=== PATIENT | male | born 1955 | race African-American/Black ===

== ENCOUNTER 2016-11-06 15:20 | Inpatient (IN) | payer OTHER, BC ==
[2016-11-06 15:27] VITALS: BMI 43.0
[2016-11-06] MEDS ORDERED: NS 1/2 1000 ML IV 1,000 ML IV ONE (15:45)
[2016-11-06] MEDS ORDERED: ROCEPHIN 1 GM IV PREMIX * OUT OF STOCK 50 ML IV ONE (15:45)
[2016-11-06] MEDS ORDERED: TYLENOL 500 MG TAB EXTRA STRENGTH ONE (15:46)
--- NOTE | 2016-11-06 15:55 | DR.CP ---
HPI - Time Seen Time seen: 15:50 - PCP Primary Care Physician: MARCELO CHRISTY - Complaint Chief Complaint Doctor Comments: Patient complains of RUQ pain for a month with fever, cold, cough with thick yellowish mucous. States he went to Dr. Quintanilla in [place] and he gave him some nasal spray about two weeks ago but he did not get any better so he came to the emergency room today. States he has had a cough with SOB, fever with pain right upper abdomen and chest. He denies wheezing or any recent trauma. Chief Complaint:: PT C/O HAVING RIGHT SIDED UPPER CHEST PAIN FOR A MONTH OFF AND ON AND ITS CONTINUOUS PAIN TODAY". Self Treatment fo Chief Complaint: PT TOOK 2 ROLAIDS, TUMSPT HAS CCC, - Reviewed Nurses Notes Review: Yes - Source History Provided: Patient - Mode of Arrival Mode of Arrival: Ambulatory - Timing Onset of Chief Complaint: 10/06/16 Came on: Gradually Pain: Present Now - Duration Duration: Intermittent How lon Duration: Weeks - Location Location of Chest Pain: Right, Chest Chest Pain Radiation Location: None - Context Onset: At rest Cardiac Risk Factors: HTN PE Risk Factors: None History of: None Prehospital Care: None - Quality Quality: Sharp - Severity Severity: Moderate - Modifying Factors Worsens: Exertion, Coughing, Movement Impoves: Nothing - Associated Signs and Symptoms Associated Signs and Symptoms: Shortness of Breath PMH - PMH Past Medical History: Yes Past Medical History: Diabetes, Hypertension Past Surgical History: Yes Past Surgical History Comment: ANKLE.. - Family History History of Family Medical Conditions: No - Social History Does patient currently use any type of tobacco product: No Have you used tobacco products in the last 12 months: No Type of Tobacco Use: None Does any household member use tobacco: No Alcohol Use: None Do you use any recreational Drugs:: No Lives With: Family Lives Where: Home - infectious screening In the last 2 months have you had wt loss of >10#?: NO Have you had fever, night sweats or hemotysis?: No Have you traveled outside the country in the last 6 months?: No Isolation: Standard ROS - Review of Systems Constitutional: No Symptoms Reported, Fever Eyes: No Symptoms Reported. negative: See HPI, Eye Pain, Blurred Vision, Tearing, Discharge, Photophobia, Diplopia, Other ENTM: No Symptoms Reported Respiratoy: Productive Cough Cardiovascular: Chest Pain (right sided chest pain). negative: No Symptoms Reported, See HPI, Edema, Palpitations, Syncope, Cyanosis, Skin Mottling, Other Gastrointestinal/Abdominal: Abdominal Pain (RUQ pain and right CVA pain). negative: No Symptoms Reported, See HPI, Constipation, Diarrhea, Nausea, Vomiting, Food Intolerance, Other Genitourinary: No Symptoms Reported Neurological: No Symptoms Reported Musculoskeletal: No Symptoms Reported Integumentary: No Symptoms Reported Hematologic/Lymphatic: No Symptoms Reported. negative: See HPI, Anemia, Blood Clots, Easy Bleeding, Easy Bruising, Swollen Glands, Lymphadenopathy, Other Endocrine: No Symptoms Reported Psychiatric: No Symptoms Reported PE - Vitals Vitals: Temperature 103.0 F Pulse Rate 111 Respiratory Rate 20 Blood Pressure 155/57 O2 Sat by Pulse Oximetry 96 - General Limitations: No Limitations General Appearance: Alert, In Distress (moderate) - Head Head Exam: Normal Inspection, Atraumatic, Normocephalic - Eyes Eye exam: Normal Appearance, PERRL, EOMI. negative: Scleral Icterus, Conjunctival Injection, Nystagmus, Miosis, Mydrasis, Periorbital Swelling, Periorbital Tenderness, Other - ENT ENT Exam: Normal Exam, Normal Oropharynx, Normal External Ear Exam, Mucous Membranes Moist, TM's Normal Bilaterally - Chest Chest Inspection: Normal Inspection, Symmetric Chest Wall Rise, Tenderness ( right cVA tenderness) - Respiratory Respiratory Exam: Normal Lung Sounds Bilat Respiratory Exam: Bilateral Clear to Auscultation, Bilateral Decreased Breath Sounds, Right Decreased Breath Sounds - Cardiovascular Cardiovascular Exam: Regular Rate, Normal Rhythm, Normal Heart Sounds. negative : Bradycardia, Tachycardia, Irregular Rhythm, Systolic Murmur, Diastolic Murmur , Rubs, Gallop, Clicks, JVD, +S1, +S2, +S3, +S4, Other Pulse: Normal Edema: Normal - Abdominal Exam Abdominal Exam: Normal Inspection, Normal Bowel Sounds, Soft, Tenderness (RUQ tenderness), Dimnished Bowel Sounds Abdominal Tenderness: RUQ, Moderate - Extremities Extremities Exam: Normal Inspection, Full ROM, Normal Capillary Refill. negative: Tenderness, Edema, Joint Swelling, Calf Tenderness, Other - Back Back Exam: Normal Inspection, Full ROM, (R) CVA Tenderness - Neurologic Neurological Exam: Alert, Oriented X3, CN II-XII Intact, Normal Gait, Reflexes Normal - Psychiatric Psychiatric Exam: Normal Affect, Normal Mood - Skin Skin Exam: Warm, Dry, Intact, Normal Color. negative: Rash, Cyanosis, Diaphoresis, Erythema, Pallor, Mottled, Other Course - Reevaluation 1st: Improved - Consultation Called: 05:30 Call Returned: 05:30 (Dr. Carrera to admit) - Education/Counseling Education/Counseling: Patient Educated On: Treatment, Diagnosis, Prognosis, Needs for Follow Up ROR - Labs Reviewed Laboratory Results Reviewed?: Yes (all labs and x-ray results reviewed and discussed with patietnt) Result Diagrams: 11/06/16 15:40 11/06/16 15:40 - XRAY XRAY Interpreted by: Radiologist (CXR: patchy RLL infiltrate) XRAY Findings: CT abdomen and pelvis: Patchy right lower lobe pneumonia. Large right pleur - Diagnosis Discharge Problem: Pleural effusion, right, SIRS (systemic inflammatory response syndrome) Right lower lobe pneumonia Qualifiers: Pneumonia type: due to unspecified organism Qualified Code(s): J18.1 - Lobar pneumonia, unspecified organism Diabetes mellitus Qualifiers: Diabetes mellitus type: type 1 - Discharge Plan Disposition: ADMITTED INPATIENT Condition: Stable - Follow ups/Referrals - Instructions
[2016-11-06] MEDS: NS 1/2 1000 ML IV 1,000 ML IV SCH ×2 (16:02→21:45)
[2016-11-06 16:05] LABS: BASOPHILS % (AUTO) 0.1 % (0.2-1.0); EOSINOPHILS % (AUTO) 0.1 % (0.9-2.9); HEMATOCRIT 34.1 % (42.0-54.0); HEMOGLOBIN 11.1 g/dL (13.5-18.0); LYMPHOCYTES # (AUTO) 0.6 X10^3/uL (1.3-2.9); LYMPHOCYTES % (AUTO) 5.4 % (21.0-51.0); MEAN CORPUSCULAR HEMOGLOBIN 26.8 pg (27.0-34.0); MEAN CORPUSCULAR HGB CONC 32.4 g/dL (33.0-35.0); MEAN CORPUSCULAR VOLUME 82.8 fL (80.0-100.0); MEAN PLATELET VOLUME 7.4 fL (7.4-11.0); MONOCYTES # (AUTO) 0.5 x10^3/uL (0.3-0.8); MONOCYTES % (AUTO) 4.3 % (0.0-13.0); NEUTROPHILS # (AUTO) 9.7 x10^3/uL (2.2-4.8); NEUTROPHILS % (AUTO) 90.1 % (42.0-75.0); PLATELET COUNT 302 X10^3/uL (150.0-450.0); RED BLOOD COUNT 4.12 X10^6/uL (4.7-6.0); RED CELL DISTRIBUTION WIDTH 12.7 % (11.6-16.5); WHITE BLOOD COUNT 10.8 X10^3/uL (3.6-10.0)
[2016-11-06] MEDS ORDERED: TYLENOL 500 MG TAB EXTRA STRENGTH PO ONE (16:06)
[2016-11-06 16:17] LABS: ALANINE AMINOTRANSFERASE 13 Units/L (12-78); ALBUMIN 3.1 g/dL (3.4-5.0); ALKALINE PHOSPHATASE 58 Units/L (46-116); ASPARTATE AMINO TRANSFERASE 20 Units/L (15-37); BLOOD UREA NITROGEN 14 mg/dL (7-18); CARBON DIOXIDE 29.2 mmol/L (21-32); CHLORIDE 102 mmol/L (98-107); COR CA(FOR HYPOALB) 9.7 mg/dL (8.5-10.1); COR NA(FOR HYPERGLY) 141 mmol/L (136-145); CREATININE 1.21 mg/dL (0.70-1.30); GLUCOSE 201 mg/dL (65-99); SODIUM 139 mmol/L (136-145); TOTAL PROTEIN 7.8 g/dL (6.4-8.2); eGFR BLACK RACES > 60 (>60); eGFR NON BLACK RACES > 60 (>60)
[2016-11-06 16:20] LABS: PLATELET MORPHOLOGY COMMENT NORMAL (NORMAL)
[2016-11-06] MEDS: ROCEPHIN VIAL 1 GM 1 GM in NS 50 ML IV + SPIKE MINIBAG* 50 ML IV SCH (16:32)
[2016-11-06 16:37] LABS: BILIRUBIN,URINE NEGATIVE (NEGATIVE); BLOOD/HEMOGLOBIN,URINE NEGATIVE (NEGATIVE); GLUCOSE, URINE 2+ (NEGATIVE); KETONES,URINE NEGATIVE (NEGATIVE); LEUKOCYTE ESTERASE ,URINE NEGATIVE (NEGATIVE); NITRITES,URINE NEGATIVE (NEGATIVE); PROTEIN,URINE NEGATIVE (NEGATIVE); UROBILINOGEN,URINE 2+ (NORMAL)
[2016-11-06 16:57] LABS: AMORPHOUS SEDIMENT,UR 2+ /HPF (NEGATIVE); APPEARANCE,URINE HAZY (CLEAR); BACTERIA,URINE TRACE /HPF (NEGATIVE); COLOR,URINE YELLOW (YELLOW); RBC,URINE 0-2 /HPF (NEGATIVE); SQUAMOUS EPITHELIAL CELL,UR RARE /HPF (NEGATIVE)
--- NOTE | 2016-11-06 17:24 | RAD ---
HISTORY: Right upper quadrant abdominal pain, chest pain Study: Two-view Chest Comparison: Findings: The trachea is midline . There is no widening or shift of mediastinum. The cardiac silhouette appear s within normal limits. blunting of the right costophrenic angle is noted consistent with small righ t pleural effusion. Patchy infiltrate is noted silhouetting the dome of the right diaphragm. The yuni gs are adequately aerated. Osseous structures are within normal limits for the patient's age IMPRESSION: 1. Heart normal size patchy infiltrate and or atelectasis at the right lung base with elevation of t he right diaphragm and small right pleural effusion. Reported By:
--- NOTE | 2016-11-06 17:39 | CT ---
Clinical history: Right upper quadrant pain, chest pain Exam: CT abdomen and pelvis without contrast Total exam DLP: 2252 Dose reduction technique: Modification of KV and MAA based on anatomic body part and patient's size. Iterative reconstruction techniques utilized. Findings: Lung bases : Moderate right pleural effusion is noted. The heart is normal in size and position. Liver and spleen: Limited evaluation of the solid organs is possible since no IV contrast is adminis tered. The liver and spleen appear homogeneous in density no perihepatic or perisplenic fluid collec tions are seen. Gallbladder and pancreas: The gallbladder is partially distended with no evidence of cholelithiasis. Pancreas appears within normal limits no pancreatic masses or peripancreatic fluid collections are seen. Adrenal glands, kidneys, retroperitoneum: No adrenal masses are identified . Malrotation of the righ t kidney is noted. No nephrolithiasis or hydronephrosis is seen.. The abdominal aorta tapers normal fashion with no evidence of abdominal aortic aneurysm. Bowel loops /abdominal wall: Moderate quantity stool noted the cecum and ascending colon. Small matthew l loops demonstrate normal caliber. The anterior abdominal wall appears intact. CT pelvis: GI: Large and small bowel loops demonstrate normal caliber. There are no free fluid collections in t he pelvis. : A partially urine filled bladder is noted mid pelvis. Prostate gland appears within normal limit s. Musculoskeletal: No superficial inguinal adenopathy is identified osseous structures are within limi ts patient's age. Impression: Patchy right lower lobe pneumonia anteriorly. Large right pleural effusion. Malrotation of the right kidney. Moderate quantity stool in the ascending colon. Reported By:
[2016-11-06] MEDS: DUONEB 0.5 MG/3 MG NEB SCH (21:03)
[2016-11-06] MEDS: LEVAQUIN PREMIX IV 750 MG 750 MG/150 ML BAG IV SCH (21:38)
[2016-11-06] MEDS: ROBITUSSIN DM PO SCH (21:40)
[2016-11-06] MEDS: PROTONIX INJ 40 MG VIAL IVP SCH (21:40)
[2016-11-06] MEDS: TYLENOL 325 MG TAB PO PRN (23:36)
[2016-11-07] MEDS: DUONEB 0.5 MG/3 MG NEB SCH ×6 (00:26→20:14)
[2016-11-07] MEDS ORDERED: NS 1/2 1000 ML IV 1,000 ML IV ONE ×2 (05:35→21:18)
[2016-11-07] MEDS: NS 1/2 1000 ML IV 1,000 ML IV SCH ×4 (05:40→23:32)
[2016-11-07] MEDS: HUMULIN R SC PRN ×4 (05:48→21:22)
[2016-11-07 06:13] LABS: ALANINE AMINOTRANSFERASE 8 Units/L (12-78); ALBUMIN 2.7 g/dL (3.4-5.0); ALKALINE PHOSPHATASE 46 Units/L (46-116); ASPARTATE AMINO TRANSFERASE 17 Units/L (15-37); BLOOD UREA NITROGEN 12 mg/dL (7-18); CALCIUM 8.8 mg/dL (8.5-10.1); CARBON DIOXIDE 27.4 mmol/L (21-32); CHLORIDE 104 mmol/L (98-107); COR CA(FOR HYPOALB) 9.8 mg/dL (8.5-10.1); COR NA(FOR HYPERGLY) 139 mmol/L (136-145); CREATININE 1.17 mg/dL (0.70-1.30); GLUCOSE 163 mg/dL (65-99); SODIUM 137 mmol/L (136-145); TOTAL PROTEIN 7.4 g/dL (6.4-8.2); eGFR BLACK RACES > 60 (>60); eGFR NON BLACK RACES > 60 (>60)
[2016-11-07 06:22] LABS: BASOPHILS # (AUTO) 0.1 X10^3/uL (0.0-0.1); BASOPHILS % (AUTO) 0.6 % (0.2-1.0); EOSINOPHILS % (AUTO) 0.1 % (0.9-2.9); HEMATOCRIT 33.6 % (42.0-54.0); LYMPHOCYTES # (AUTO) 0.7 X10^3/uL (1.3-2.9); LYMPHOCYTES % (AUTO) 4.4 % (21.0-51.0); MEAN CORPUSCULAR HEMOGLOBIN 27.3 pg (27.0-34.0); MEAN CORPUSCULAR HGB CONC 32.7 g/dL (33.0-35.0); MEAN CORPUSCULAR VOLUME 83.5 fL (80.0-100.0); MEAN PLATELET VOLUME 8.1 fL (7.4-11.0); MONOCYTES # (AUTO) 1.1 x10^3/uL (0.3-0.8); MONOCYTES % (AUTO) 6.8 % (0.0-13.0); NEUTROPHILS # (AUTO) 14.5 x10^3/uL (2.2-4.8); NEUTROPHILS % (AUTO) 88.1 % (42.0-75.0); PLATELET COUNT 279 X10^3/uL (150.0-450.0); RED BLOOD COUNT 4.02 X10^6/uL (4.7-6.0); RED CELL DISTRIBUTION WIDTH 12.6 % (11.6-16.5); WHITE BLOOD COUNT 16.4 X10^3/uL (3.6-10.0)
[2016-11-07] MEDS: ROBITUSSIN DM PO SCH ×4 (08:45→21:23)
[2016-11-07] MEDS: ROCEPHIN VIAL 1 GM 1 GM in NS 50 ML IV + SPIKE MINIBAG* 50 ML IV SCH (08:45)
[2016-11-07] MEDS: LEVAQUIN PREMIX IV 750 MG 750 MG/150 ML BAG IV SCH (08:45)
[2016-11-07] MEDS: PROTONIX INJ 40 MG VIAL IVP SCH (08:46)
[2016-11-07] MEDS ORDERED: ROCEPHIN VIAL 1 GM 1 GM in NS 50 ML IV + SPIKE MINIBAG* 50 ML IV SCH (09:00)
[2016-11-07] MEDS: TYLENOL 325 MG TAB PO PRN (19:26)
--- NOTE | 2016-11-07 20:24 | RAD ---
Chest AP portable Indication: Dyspnea. Comparison: November 06, 2016. Findings: There is dense right lung opacity, worsening from the prior. Left lung remains relatively clear. Heart size is prominent. No large pneumothorax seen. Impression: Worsening right lung opacity, concerning for developing pneumonia. Underlying lesion nee ds to be excluded. Followup to resolution. Right effusion and atelectasis also probably present. Reported By:
[2016-11-08] MEDS: DUONEB 0.5 MG/3 MG NEB SCH ×4 (00:48→12:27)
[2016-11-08 03:45] LABS: BASOPHILS # (AUTO) 0.1 X10^3/uL (0.0-0.1); BASOPHILS % (AUTO) 0.4 % (0.2-1.0); EOSINOPHILS % (AUTO) 0.1 % (0.9-2.9); HEMATOCRIT 32.2 % (42.0-54.0); HEMOGLOBIN 10.4 g/dL (13.5-18.0); LYMPHOCYTES # (AUTO) 0.5 X10^3/uL (1.3-2.9); LYMPHOCYTES % (AUTO) 3.1 % (21.0-51.0); MEAN CORPUSCULAR HEMOGLOBIN 26.8 pg (27.0-34.0); MEAN CORPUSCULAR HGB CONC 32.4 g/dL (33.0-35.0); MEAN CORPUSCULAR VOLUME 82.9 fL (80.0-100.0); MEAN PLATELET VOLUME 7.4 fL (7.4-11.0); MONOCYTES # (AUTO) 1.4 x10^3/uL (0.3-0.8); MONOCYTES % (AUTO) 7.9 % (0.0-13.0); NEUTROPHILS # (AUTO) 15.2 x10^3/uL (2.2-4.8); NEUTROPHILS % (AUTO) 88.5 % (42.0-75.0); PLATELET COUNT 282 X10^3/uL (150.0-450.0); RED BLOOD COUNT 3.88 X10^6/uL (4.7-6.0); RED CELL DISTRIBUTION WIDTH 12.9 % (11.6-16.5); WHITE BLOOD COUNT 17.1 X10^3/uL (3.6-10.0)
[2016-11-08 03:50] LABS: ALANINE AMINOTRANSFERASE 13 Units/L (12-78); ALBUMIN 2.4 g/dL (3.4-5.0); ALKALINE PHOSPHATASE 53 Units/L (46-116); ASPARTATE AMINO TRANSFERASE 21 Units/L (15-37); BLOOD UREA NITROGEN 11 mg/dL (7-18); CALCIUM 8.3 mg/dL (8.5-10.1); CARBON DIOXIDE 28.8 mmol/L (21-32); CHLORIDE 104 mmol/L (98-107); COR CA(FOR HYPOALB) 9.6 mg/dL (8.5-10.1); COR NA(FOR HYPERGLY) 141 mmol/L (136-145); CREATININE 1.13 mg/dL (0.70-1.30); GLUCOSE 176 mg/dL (65-99); SODIUM 139 mmol/L (136-145); TOTAL PROTEIN 7.1 g/dL (6.4-8.2); eGFR BLACK RACES > 60 (>60); eGFR NON BLACK RACES > 60 (>60)
[2016-11-08] MEDS: HUMULIN R SC PRN ×2 (06:09→11:48)
--- NOTE | 2016-11-08 06:26 | RAD ---
HISTORY: Follow up pneumonia Study: Chest one view Comparison: November 07, 2016, November 06, 2016 Findings: There is complete opacification of the right ina thorax due at least in part to a large right pleur al effusion. However com underlying atelectasis, mass com or infiltrate cannot be excluded. Chest CT with contrast would be of further diagnostic value. The left lung is clear. Heart size cannot be de termined due to obscuration of the right heart border. The bony thorax is unremarkable. IMPRESSION: Persisting complete opacification of the right ina thorax due in part to a right pleural effusion h owever underlying mass or infiltrate or atelectasis cannot be excluded. Chest CT with contrast would be of further diagnostic value Reported By:
[2016-11-08] MEDS: PROTONIX INJ 40 MG VIAL IVP SCH (09:39)
[2016-11-08] MEDS: ROCEPHIN VIAL 1 GM 1 GM in NS 50 ML IV + SPIKE MINIBAG* 50 ML IV SCH (09:39)
[2016-11-08] MEDS: LEVAQUIN PREMIX IV 750 MG 750 MG/150 ML BAG IV SCH (09:39)
[2016-11-08] MEDS: ROBITUSSIN DM PO SCH ×2 (09:39→13:42)
[2016-11-08] MEDS ORDERED: GLUCOPHAGE ONE (11:41)
[2016-11-08] MEDS ORDERED: NS 1/2 1000 ML IV 1,000 ML IV ONE (11:42)
[2016-11-08] MEDS: NS 1/2 1000 ML IV 1,000 ML IV SCH ×2 (11:50→13:41)
[2016-11-08] MEDS ORDERED: FLONASE NASAL SPRAY ENOSTRIL SCH ×2 (12:00→21:00)
[2016-11-08] MEDS ORDERED: ZESTRIL TAB 10 MG PO SCH (12:00)
[2016-11-08] MEDS ORDERED: TRICOR TAB 48 MG PO SCH (12:00)
[2016-11-08] MEDS ORDERED: ASPIRIN EC 81 MG PO SCH (12:00)
[2016-11-08] MEDS ORDERED: GLUCOPHAGE PO SCH (12:00)
[2016-11-08] MEDS ORDERED: LEVEMIR SC SCH (12:00)
[2016-11-08] MEDS ORDERED: NS 100 ML IV 100 ML IV ONE (12:55)
--- NOTE | 2016-11-08 13:46 | CT ---
HISTORY: Shortness of breath, right pleural effusion, diabetes, suspected pulmonary embolus Study: CTA chest, PE protocol Comparison: No priors Technique: Multiple axial images of the chest were obtained from the thoracic inlet to the upper abd omen during the administration of IV contrast. In addition to standard multi planer reconstructions, MIP reconstructions were performed in coronal and sagittal planes. Dose reduction techniques utiliz ed automatic exposure control. There is very weak opacification of the pulmonary arteries and the th oracic aorta. Findings: The mediastinum does not demonstrate significant pathological lymphadenopathy. There is no pericard ial effusion observed. The thoracic aorta is normal in its contour without evidence for aneurysmal dilatation. there are calcifications present within the LAD. Very weak opacification allows for excl usion of only central pulmonary emboli. The branch pulmonary arteries are not sufficiently opacified to exclude small branch emboli. Evaluation of the lung parenchyma there is a large right pleural effusion present with compression o f lung parenchyma and upper, middle and lower lobe regions. Bronchial structures do appear to be uni formly narrowed. No evidence of hilar mass or adenopathy is seen.. The left lung is clear. No pleur al fluid is seen on the left. Although a discrete nodule is not identified on the right , 1 could be obscured in the areas of fluid collection or conglomerate density The bony thorax is unremarkable i n its appearance. The visualized portions of the upper abdomen are grossly unremarkable. IMPRESSION: Very weak opacification of the pulmonary arteries and thoracic aorta. On that basis, exclusion of on ly large central pulmonary emboli may be stated. Branch pulmonary emboli are not excluded. Large right pleural effusion. This is seen to compress the lung parenchyma with atelectasis in the r ight upper, right middle and right lower lobe regions. The bronchi are uniformly narrowed by this pr ocess. A discrete hilar mass is not identified. Reported By:
[2016-11-08] MEDS ORDERED: HUMULIN R SC PRN (15:41)
[2016-11-08] MEDS ORDERED: TYLENOL 325 MG TAB PO PRN (15:41)
[2016-11-08] MEDS ORDERED: LASIX IVP ONE ×2 (15:56→16:00)
[2016-11-08 16:26] LABS: ABG BASE EXCESS 4.5 mmol/L (-2.0-2.0); ABG HCO3 29.2 mmol/L (22-26); FRACTIONATED INSPIRED OXYGEN 21
[2016-11-08 16:27] LABS: ABG ALLEN TEST POS
[2016-11-08] MEDS ORDERED: DUONEB 0.5 MG/3 MG NEB SCH (17:00)
[2016-11-08] MEDS ORDERED: ROBITUSSIN DM PO SCH (17:00)
--- NOTE | 2016-11-08 17:00 | PCM.PROG ---
Progress Note - Progress Note for Day of Date: 11/08/16 - Subjective Subjective: 61 black male admitted on 11/06 with complaints of RUQ pain for a month with fever, cold, cough with thick yellowish mucous. States he went to Dr. Quintanilla in [place] and he gave him some nasal spray about two weeks ago but he did not get any better so he came to the emergency room today. States he has had a cough with SOB, fever with pain right upper abdomen and chest. PT CT ABD PELVIS ABNORMAL CHEST FINDINGS, PT NPO FOR CTA FOR CHEST TODAY. - Past Medical Family Social History Past Med/Fam/Surg Hx: No changes since H&P Allergies: Allergies Oxycodone Allergy (Verified 11/06/16 15:21) - Review of Systems ROS: No change since H&P - Vital Signs and I&O's Vital Signs: Temperature 100.6 F Pulse Rate [Left Brachial] 116 Pulse Rate 110 Respiratory Rate 34 Blood Pressure [Left Arm] 131/74 Blood Pressure 155/57 O2 Sat by Pulse Oximetry 92 Intake and Output: Intake & Output 11/06/16 11/07/16 11/08/16 11/09/16 11:59 11:59 11:59 11:59 Intake Total 0 2074 Output Total 775 Balance 0 2074 -775 - Physical Exam Oriented: Normal Eyes: Normal Ear: Normal Nose: Normal Throat: Normal Respiratory: Diminished Cardiovascular: Normal : Normal Auscultation: Bowel Sounds: Normal Palpation: Normal Skin: Normal Musculoskeletal: Back:Thoracic, Back:Lumbar Mood Description: Calm Speech Pattern: Clear, Appropriate - Laboratory and Diagnostics Result Diagrams: 11/08/16 03:10 11/08/16 03:10 Labs: 11/06/16 23:40 Blood Blood Culture - Preliminary 11/06/16 23:35 Blood Blood Culture - Preliminary Laboratory WBC 17.1 X10^3/uL (3.6-10.0) H 11/08/16 03:10 RBC 3.88 X10^6/uL (4.7-6.0) L 11/08/16 03:10 Hgb 10.4 g/dL (13.5-18.0) L 11/08/16 03:10 Hct 32.2 % (42.0-54.0) L 11/08/16 03:10 MCV 82.9 fL (80.0-100.0) 11/08/16 03:10 MCH 26.8 pg (27.0-34.0) L 11/08/16 03:10 MCHC 32.4 g/dL (33.0-35.0) L 11/08/16 03:10 RDW 12.9 % (11.6-16.5) 11/08/16 03:10 Plt Count 282 X10^3/uL (150.0-450.0) 11/08/16 03:10 Plt Count Comment Adequate (ADEQUATE) 11/06/16 15:40 MPV 7.4 fL (7.4-11.0) 11/08/16 03:10 Neut % 88.5 % (42.0-75.0) H 11/08/16 03:10 Lymph % 3.1 % (21.0-51.0) L 11/08/16 03:10 [place] % 7.9 % (0.0-13.0) 11/08/16 03:10 Eos % 0.1 % (0.9-2.9) L 11/08/16 03:10 Baso % 0.4 % (0.2-1.0) 11/08/16 03:10 Neut # 15.2 x10^3/uL (2.2-4.8) H 11/08/16 03:10 Lymph # 0.5 X10^3/uL (1.3-2.9) L 11/08/16 03:10 [place] # 1.4 x10^3/uL (0.3-0.8) H 11/08/16 03:10 Eos # 0.0 x10^3/uL (0.0-0.2) 11/08/16 03:10 Baso # 0.1 X10^3/uL (0.0-0.1) 11/08/16 03:10 Absolute Nucleated RBC 0.1 /100WBC 11/08/16 03:10 Total Counted 100 11/06/16 15:40 Neutrophils % (Manual) 91 % (39-76) H 11/06/16 15:40 Lymphocytes % (Manual) 7 % (13-43) L 11/06/16 15:40 Monocytes % (Manual) 2 % (4-9) L 11/06/16 15:40 Plt Morphology Comment Normal (NORMAL) 11/06/16 15:40 RBC Morphology Normal (NORMAL) 11/06/16 15:40 Sample Site Right radial 11/08/16 16:18 ABG pH 7.440 (7.35-7.45) 11/08/16 16:18 ABG pCO2 43.0 mmHg (35.0-45.0) 11/08/16 16:18 ABG pO2 41.0 mmHg (80.0-100.0) L* 11/08/16 16:18 ABG HCO3 29.2 mmol/L (22-26) H 11/08/16 16:18 ABG O2 Saturation 78.0 % (90-100) L* 11/08/16 16:18 ABG Base Excess 4.5 mmol/L (-2.0-2.0) H 11/08/16 16:18 Kelechi Test Pos 11/08/16 16:18 A-a Gradient 55.0 mmHg 11/08/16 16:18 FiO2 21 11/08/16 16:18 Blood Gas Comments Heraclio well aw 11/08/16 16:18 Sodium 139 mmol/L (136-145) 11/08/16 03:10 Corrected Sodium 141 mmol/L (136-145) 11/08/16 03:10 Potassium 4.2 mmol/L (3.5-5.1) 11/08/16 03:10 Chloride 104 mmol/L (98-107) 11/08/16 03:10 Carbon Dioxide 28.8 mmol/L (21-32) 11/08/16 03:10 BUN 11 mg/dL (7-18) 11/08/16 03:10 Creatinine 1.13 mg/dL (0.70-1.30) 11/08/16 03:10 Est GFR (MDRD) Af Amer > 60 (>60) 11/08/16 03:10 Est GFR (MDRD) Non-Af > 60 (>60) 11/08/16 03:10 Glucose 176 mg/dL (65-99) H 11/08/16 03:10 Calcium 8.3 mg/dL (8.5-10.1) L 11/08/16 03:10 Corrected Calcium 9.6 mg/dL (8.5-10.1) 11/08/16 03:10 Total Bilirubin 0.60 mg/dL (0.2-1.0) 11/08/16 03:10 AST 21 Units/L (15-37) 11/08/16 03:10 ALT 13 Units/L (12-78) 11/08/16 03:10 Alkaline Phosphatase 53 Units/L (46-116) 11/08/16 03:10 Total Protein 7.1 g/dL (6.4-8.2) 11/08/16 03:10 Albumin 2.4 g/dL (3.4-5.0) L 11/08/16 03:10 Globulin 4.7 g/dL (2.5-4.5) H 11/08/16 03:10 Albumin/Globulin Ratio 0.5 Ratio (1.1-2.1) L 11/08/16 03:10 Specimen Type Clean catch urine 11/06/16 16:24 Urine Color Yellow (YELLOW) 11/06/16 16:24 Urine Appearance Hazy (CLEAR) 11/06/16 16:24 Urine pH 7.0 (5.0 - 8.0) 11/06/16 16:24 Ur Specific [place] 1.015 (1.000-1.030) 11/06/16 16:24 Urine Protein Negative (NEGATIVE) 11/06/16 16:24 Urine Glucose (UA) 2+ (NEGATIVE) 11/06/16 16:24 Urine Ketones Negative (NEGATIVE) 11/06/16 16:24 Urine Occult Blood Negative (NEGATIVE) 11/06/16 16:24 Urine Nitrite Negative (NEGATIVE) 11/06/16 16:24 Urine Bilirubin Negative (NEGATIVE) 11/06/16 16:24 Urine Urobilinogen 2+ (NORMAL) 11/06/16 16:24 Ur Leukocyte Esterase Negative (NEGATIVE) 11/06/16 16:24 Urine RBC 0-2 /HPF (NEGATIVE) 11/06/16 16:24 Urine WBC 0-2 /HPF (NEGATIVE) 11/06/16 16:24 Ur Squamous Epith Cells Rare /HPF (NEGATIVE) 11/06/16 16:24 Amorphous Sediment 2+ /HPF (NEGATIVE) 11/06/16 16:24 Urine Bacteria Trace /HPF (NEGATIVE) 11/06/16 16:24 Ur Culture Indicated? No/not indicated 11/06/16 16:24 - Plan (1) Right lower lobe pneumonia Status: Acute Qualifiers: Pneumonia type: due to unspecified organism Aspiration pneumonia type: A Qualified Code(s): J18.1 - Lobar pneumonia, unspecified organism Plan: CONTINUE IV ATBX, RESP THERAPY. BLOOD PRESSURE AND BLOOD SUGAR CONTROL. NPO FOR CTA TODAY. 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
--- NOTE | 2016-11-08 17:08 | DR.H&P ---
H&P - History & Physical for Day of: H&P Date: 11/06/16 - Chief Complaint Chief Complaint: Fever, chills, RUQ pain, right pleuritic chest pain. - Allergies Allergies/Adverse Reactions: Allergies Allergy/AdvReac Type Severity Reaction Status Date / Time Oxycodone Allergy Verified 11/06/16 15:21 - History of Present Illness History of Present Illness: This is a 61-year-old male who comes to the [facility] emergency room complaining of subjective fevers, cough, congestion, yellow sputum production, right upper quadrant pain and right-sided pleuritic chest pain for approximately 2 weeks. Patient states he was seen by his primary care physician in [facility] approximately 2 weeks ago and was treated with antibiotics and a nasal spray and has not gotten any better. The patient was noted to have a right lower lobe infiltrate at the time of evaluation in the emergency room setting was subsequently admitted for further workup. - Past Medical History Past Medical History: Diabetes, Hypertension - Family History Family Medical History: Diabetes Mellitus, Cancer, Hypertension - Social History Does patient currently use any type of tobacco product: No Have you used tobacco products in the last 12 months: No Type of Tobacco Use: None Does any household member use tobacco: No Alcohol Use: None Drug Use: None - Medications Home Medications: Aspirin EC [ASPIRIN EC 81 MG *] 81 mg PO DAILY 11/07/16 [History Confirmed 11/07] Fenofibrate [Tricor] 48 mg PO DAILY 11/07/16 [History Confirmed 11/07/16] Fluticasone Propionate (Nasal) [Flonase Allergy Relief OTC] 1 spray ENOSTRIL BID 11/07/16 [History Confirmed 11/07/16] Insulin Detemir (Levemir) [LEVEMIR INSULIN *] 100 units SC DAILY 11/07/16 [ History Confirmed 11/08/16] Lisinopril 10 mg PO DAILY 11/07/16 [History Confirmed 11/07/16] Metformin HCl [Glucophage] 500 mg PO DAILY 11/07/16 [History Confirmed 11/07/16] - Review of Systems Constitutional: See HPI Eyes: No Symptoms Reported ENT: No Symptoms Reported Respiratory: See HPI Cardiovascular: Chest Pain (right-sided pleuritic chest pain.) Gastrointestinal: No Symptoms Reported Genitourinary: No Symptoms Reported Musculoskeletal: No Symptoms Reported Skin: No Symptoms Reported Neurological: No Symptoms Reported - Physical Exam Vital Signs: Temperature 100.6 F Pulse Rate [Left Brachial] 116 Pulse Rate 110 Respiratory Rate 34 Blood Pressure [Left Arm] 131/74 Blood Pressure 155/57 O2 Sat by Pulse Oximetry 92 Oriented: Normal Eyes: Normal Ear: Normal Nose: Normal Throat: Normal Respiratory: RLL Rhonchi Cardiovascular: Normal : Normal Auscultation: Bowel Sounds: Normal Palpation: Normal Tenderness: Normal Skin: Normal Musculoskeletal: Normal Psychiatric: Normal Mood Description: Calm Affect: Normal Speech Pattern: Clear - Assessment/Plan (1) Right lower lobe pneumonia Qualifiers: Pneumonia type: due to unspecified organism Aspiration pneumonia type: A Qualified Code(s): J18.1 - Lobar pneumonia, unspecified organism Status: Acute Plan: 1. Admit for further workup. 2. O2 at 2 L/m per nasal cannula. 3. Chest x-ray. 4. CMP and CBC. 5. UA C&S. 6. Sputum culture and sensitivity. 7. Albuterol and Atrovent jet nebulizer treatments every 6 hours. 8. Albuterol jet nebulizer treatments every 4 hours when necessary for shortness of breath. 9. Levaquin 500 milligrams IV daily. 10. Rocephin 1 gm 500 mg IV daily. 11. Continue home medications. 12. 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
--- NOTE | 2016-11-08 17:17 | PCM.PROG ---
Progress Note - Progress Note for Day of Date: 11/07/16 - Subjective Subjective: Patient is a 61-year-old black male was admitted to the [facility] 2 days ago secondary to a right lower lobe pneumonia and small right pleural effusion. The patient complains of worsening shortness of breath today. Repeat chest x- ray reveals increasing pleural effusion and worsening infiltrate. - Past Medical Family Social History Past Med/Fam/Surg Hx: No changes since H&P Allergies: Allergies Oxycodone Allergy (Verified 11/06/16 15:21) - Review of Systems ROS: No change since H&P - Vital Signs and I&O's Vital Signs: Temperature 100.6 F Pulse Rate [Left Brachial] 116 Pulse Rate 110 Respiratory Rate 34 Blood Pressure [Left Arm] 131/74 Blood Pressure 155/57 O2 Sat by Pulse Oximetry 92 Intake and Output: Intake & Output 11/06/16 11/07/16 11/08/16 11/09/16 11:59 11:59 11:59 11:59 Intake Total 0 2074 Output Total 1125 Balance 0 2074 -1125 - Physical Exam Oriented: Normal Eyes: Normal Ear: Normal Nose: Normal Throat: Normal Respiratory: Diminished Cardiovascular: Normal : Normal Auscultation: Bowel Sounds: Normal Tenderness: Normal Skin: Normal Musculoskeletal: Normal Psychiatric: Normal Mood Description: Calm Affect: Normal Speech Pattern: Clear - Laboratory and Diagnostics Result Diagrams: 11/08/16 03:10 11/08/16 03:10 Labs: 11/06/16 23:40 Blood Blood Culture - Preliminary 11/06/16 23:35 Blood Blood Culture - Preliminary Laboratory WBC 17.1 X10^3/uL (3.6-10.0) H 11/08/16 03:10 RBC 3.88 X10^6/uL (4.7-6.0) L 11/08/16 03:10 Hgb 10.4 g/dL (13.5-18.0) L 11/08/16 03:10 Hct 32.2 % (42.0-54.0) L 11/08/16 03:10 MCV 82.9 fL (80.0-100.0) 11/08/16 03:10 MCH 26.8 pg (27.0-34.0) L 11/08/16 03:10 MCHC 32.4 g/dL (33.0-35.0) L 11/08/16 03:10 RDW 12.9 % (11.6-16.5) 11/08/16 03:10 Plt Count 282 X10^3/uL (150.0-450.0) 11/08/16 03:10 Plt Count Comment Adequate (ADEQUATE) 11/06/16 15:40 MPV 7.4 fL (7.4-11.0) 11/08/16 03:10 Neut % 88.5 % (42.0-75.0) H 11/08/16 03:10 Lymph % 3.1 % (21.0-51.0) L 11/08/16 03:10 M[place] % 7.9 % (0.0-13.0) 11/08/16 03:10 Eos % 0.1 % (0.9-2.9) L 11/08/16 03:10 Baso % 0.4 % (0.2-1.0) 11/08/16 03:10 Neut # 15.2 x10^3/uL (2.2-4.8) H 11/08/16 03:10 Lymph # 0.5 X10^3/uL (1.3-2.9) L 11/08/16 03:10 M[place]one # 1.4 x10^3/uL (0.3-0.8) H 11/08/16 03:10 Eos # 0.0 x10^3/uL (0.0-0.2) 11/08/16 03:10 Baso # 0.1 X10^3/uL (0.0-0.1) 11/08/16 03:10 Absolute Nucleated RBC 0.1 /100WBC 11/08/16 03:10 Total Counted 100 11/06/16 15:40 Neutrophils % (Manual) 91 % (39-76) H 11/06/16 15:40 Lymphocytes % (Manual) 7 % (13-43) L 11/06/16 15:40 Monocytes % (Manual) 2 % (4-9) L 11/06/16 15:40 Plt Morphology Comment Normal (NORMAL) 11/06/16 15:40 RBC Morphology Normal (NORMAL) 11/06/16 15:40 Sample Site Right radial 11/08/16 16:18 ABG pH 7.440 (7.35-7.45) 11/08/16 16:18 ABG pCO2 43.0 mmHg (35.0-45.0) 11/08/16 16:18 ABG pO2 41.0 mmHg (80.0-100.0) L* 11/08/16 16:18 ABG HCO3 29.2 mmol/L (22-26) H 11/08/16 16:18 ABG O2 Saturation 78.0 % (90-100) L* 11/08/16 16:18 ABG Base Excess 4.5 mmol/L (-2.0-2.0) H 11/08/16 16:18 Kelechi Test Pos 11/08/16 16:18 A-a Gradient 55.0 mmHg 11/08/16 16:18 FiO2 21 11/08/16 16:18 Blood Gas Comments Heraclio well aw 11/08/16 16:18 Sodium 139 mmol/L (136-145) 11/08/16 03:10 Corrected Sodium 141 mmol/L (136-145) 11/08/16 03:10 Potassium 4.2 mmol/L (3.5-5.1) 11/08/16 03:10 Chloride 104 mmol/L (98-107) 11/08/16 03:10 Carbon Dioxide 28.8 mmol/L (21-32) 11/08/16 03:10 BUN 11 mg/dL (7-18) 11/08/16 03:10 Creatinine 1.13 mg/dL (0.70-1.30) 11/08/16 03:10 Est GFR (MDRD) Af Amer > 60 (>60) 11/08/16 03:10 Est GFR (MDRD) Non-Af > 60 (>60) 11/08/16 03:10 Glucose 176 mg/dL (65-99) H 11/08/16 03:10 Calcium 8.3 mg/dL (8.5-10.1) L 11/08/16 03:10 Corrected Calcium 9.6 mg/dL (8.5-10.1) 11/08/16 03:10 Total Bilirubin 0.60 mg/dL (0.2-1.0) 11/08/16 03:10 AST 21 Units/L (15-37) 11/08/16 03:10 ALT 13 Units/L (12-78) 11/08/16 03:10 Alkaline Phosphatase 53 Units/L (46-116) 11/08/16 03:10 Total Protein 7.1 g/dL (6.4-8.2) 11/08/16 03:10 Albumin 2.4 g/dL (3.4-5.0) L 11/08/16 03:10 Globulin 4.7 g/dL (2.5-4.5) H 11/08/16 03:10 Albumin/Globulin Ratio 0.5 Ratio (1.1-2.1) L 11/08/16 03:10 Specimen Type Clean catch urine 11/06/16 16:24 Urine Color Yellow (YELLOW) 11/06/16 16:24 Urine Appearance Hazy (CLEAR) 11/06/16 16:24 Urine pH 7.0 (5.0 - 8.0) 11/06/16 16:24 Ur Specific [place] 1.015 (1.000-1.030) 11/06/16 16:24 Urine Protein Negative (NEGATIVE) 11/06/16 16:24 Urine Glucose (UA) 2+ (NEGATIVE) 11/06/16 16:24 Urine Ketones Negative (NEGATIVE) 11/06/16 16:24 Urine Occult Blood Negative (NEGATIVE) 11/06/16 16:24 Urine Nitrite Negative (NEGATIVE) 11/06/16 16:24 Urine Bilirubin Negative (NEGATIVE) 11/06/16 16:24 Urine Urobilinogen 2+ (NORMAL) 11/06/16 16:24 Ur Leukocyte Esterase Negative (NEGATIVE) 11/06/16 16:24 Urine RBC 0-2 /HPF (NEGATIVE) 11/06/16 16:24 Urine WBC 0-2 /HPF (NEGATIVE) 11/06/16 16:24 Ur Squamous Epith Cells Rare /HPF (NEGATIVE) 11/06/16 16:24 Amorphous Sediment 2+ /HPF (NEGATIVE) 11/06/16 16:24 Urine Bacteria Trace /HPF (NEGATIVE) 11/06/16 16:24 Ur Culture Indicated? No/not indicated 11/06/16 16:24 Influenza A (H1N1) PCR Not detected (NOT DETECT) 11/08/16 15:12 Influenza Type A (PCR) Negative (NEGATIVE) 11/08/16 15:12 Influenza Type B (PCR) Negative (NEGATIVE) 11/08/16 15:12 - Plan (1) Right lower lobe pneumonia Status: Acute Qualifiers: Pneumonia type: due to unspecified organism Aspiration pneumonia type: A Qualified Code(s): J18.1 - Lobar pneumonia, unspecified organism Plan: 1. CTA of the chest. 2. Continue Rocephin 1 g IV daily. 3. Continue Levaquin 500 milligrams IV daily. 4. BMP and CBC today. 5. Room air ABG. 6. Continue albuterol and Atrovent nebulizer treatment every 6 hours and every 4 hours when necessary. 7. Continue all other current medications. 8. For further orders see chart (2) Pleural effusion, right Status: Acute Plan: as above (3) Diabetes mellitus Status: Chronic Qualifiers: Diabetes mellitus type: type 2 Diabetes mellitus complication status: D Diabetes mellitus complication detail: D Diabetic retinopathy severity: D Proliferative retinopathy type: P Diabetes mellitus macular edema: D Diabetes mellitus custodial insulin use: D Laterality: L Chronic kidney disease stage: C Plan: As above
[2016-11-08] MEDS ORDERED: LASIX ONE (17:29)
[2016-11-08 17:51] VITALS: BP 142/68
[2016-11-08] MEDS ORDERED: SNACK - Diabetic Appropriate PO SCH ×3 (20:00)
[2016-11-09] MEDS ORDERED: NS 1/2 1000 ML IV 1,000 ML IV SCH (03:00)
[2016-11-09] MEDS ORDERED: TRICOR TAB 48 MG PO SCH (09:00)
[2016-11-09] MEDS ORDERED: ZESTRIL TAB 10 MG PO SCH (09:00)
[2016-11-09] MEDS ORDERED: LEVEMIR SC SCH (09:00)
[2016-11-09] MEDS ORDERED: LEVAQUIN PREMIX IV 750 MG 750 MG/150 ML BAG IV SCH (09:00)
[2016-11-09] MEDS ORDERED: ROCEPHIN VIAL 1 GM 1 GM in NS 50 ML IV + SPIKE MINIBAG* 50 ML IV SCH (09:00)
[2016-11-09] MEDS ORDERED: GLUCOPHAGE PO SCH (09:00)
[2016-11-09] MEDS ORDERED: PROTONIX INJ 40 MG VIAL IVP SCH (09:00)
[2016-11-09] MEDS ORDERED: ASPIRIN EC 81 MG PO SCH (09:00)
== END 2016-11-08 18:05 | disposition short-term general hospital (02) | DRG 193 ==
LOC: ER 15:46 → OBSVTOIN 18:33 → OBS 18:33 → INTOOBSV 11-08 15:00 → ICU 11-08 15:00 → OBSVTOIN 11-08 15:00
PROVIDERS: ADMIT Internal Medicine; ATTEND Internal Medicine
DX: J18.1 Lobar pneumonia, unspecified organism (principal); R65.11 Systemic inflammatory response syndrome (SIRS) of non-infectious origin with acute organ dysfunction; J90 Pleural effusion, not elsewhere classified; R06.02 Shortness of breath; R10.11 Right upper quadrant pain; I10 Essential (primary) hypertension; R06.89 Other abnormalities of breathing; E11.65 Type 2 diabetes mellitus with hyperglycemia
CPT/HCPCS: 36415; 36600; 71010; 71020; 71275; 74176; 80053; 81001; 82803; 85025; 87040; 87070; 87205; 87502; 87503; 94640; 94760; 96365; 96367; 96374; 99221; 99231; 99284; A4222; C9113; 1956; G0378; J0696; J1815; J1940; J1956; J7620

== ENCOUNTER 2017-01-31 19:21 | Emergency (ER) | payer OTHER, BC ==
[2017-01-31 19:27] VITALS: BP 141/55; BMI 38.7
--- NOTE | 2017-01-31 20:18 | DR.GENAD ---
HPI - PCP Primary Care Physician: [place] - Complaint/Symptoms Chief Complaint Doctors Comments: C/o of fever and diarrhea x 2 days. Chief Complaint:: "Tuesday I started running a fever and have had the shakes. I just feel really sick." Self Treatment fo Chief Complaint: Ibuprofen this morning - Nurses notes reviewed Nurses Notes Review: Yes - Source History Provided: Patient - Mode of Arrival Mode of Arrival: Ambulatory - Timing Onset of Chief Complaint: 01/29/17 Came on: Gradually - Duration Duration: Intermittent How lon Duration: Days - Location Location: abdomin diffuse - Modifying Factors Worsens:: nothing Improves:: nothing - Associated Signs and Symptoms Associated Signs and Symptoms: chills - Other History Other History: recent pneumonia PMH - PMH Past Medical History: Yes Past Medical History: Diabetes, Hypertension Past Surgical History: Yes Surgical History: Ortho Surgery - Family History History of Family Medical Conditions: Yes Family Medical History: Diabetes Mellitus, Cancer, Hypertension - Social History Does patient currently use any type of tobacco product: No Have you used tobacco products in the last 12 months: No Type of Tobacco Use: None Does any household member use tobacco: No Alcohol Use: None Do you use any recreational Drugs:: No Lives With: Family Lives Where: Home - infectious screening In the last 2 months have you had wt loss of >10#?: NO Have you had fever, night sweats or hemotysis?: No Have you traveled outside the country in the last 6 months?: No Isolation: Standard ROS - Review of Systems Constitutional: No Symptoms Reported Eyes: No Symptoms Reported ENTM: No Symptoms Reported Respiratoy: No Symptoms Reported Cardiovascular: No Symptoms Reported Gastrointestinal/Abdominal: Abdominal Pain (achy), Diarrhea Genitourinary: No Symptoms Reported Neurological: No Symptoms Reported Musculoskeletal: No Symptoms Reported Integumentary: No Symptoms Reported Hematologic/Lymphatic: No Symptoms Reported Endocrine: No Symptoms Reported Psychiatric: No Symptoms Reported All Other Systems: Reviewed and Negative PE - Vital Signs Vitals: Temperature 99.1 F Pulse Rate 100 Respiratory Rate 18 Blood Pressure [Left Arm] 142/68 Blood Pressure 141/55 O2 Sat by Pulse Oximetry 98 - General Limitations: No Limitations General Appearance: Alert, In No Apparent Distress - Head Head Exam: Normal Inspection, Atraumatic - Eyes Eye exam: Normal Appearance, EOMI. negative: Scleral Icterus, Conjunctival Injection - ENT Nose Exam: Normal Nose Exam - Neck Neck Exam: Normal Inspection, Full ROM, Trachea Midline - Chest Chest Inspection: Normal Inspection, Symmetric Chest Wall Rise - Respiratory Respiratory Exam: Normal Lung Sounds Bilat. negative: Accessory Muscle Use, Respiratory Distress Respiratory Exam: Bilateral Clear to Auscultation - Cardiovascular Cardiovascular Exam: Regular Rate - Abdominal Exam Abdominal Exam: Normal Inspection, Normal Bowel Sounds, Soft, Tenderness. negative: Distention, Guarding, Rebound Abdominal Tenderness: Diffuse - Extremities Extremities Exam: Normal Inspection, Full ROM - Back Back Exam: Normal Inspection, Full ROM - Neurologic Neurological Exam: Alert, Oriented X3, CN II-XII Intact - Psychiatric Psychiatric Exam: Normal Mood - Skin Skin Exam: Intact, Normal Color ROR - Labs Reviewed Result Diagrams: 01/31/17 20:31 01/31/17 20: Laboratory: WBC 5.6 X10^3/uL (3.6-10.0) 01/31/17 20: RBC 4.20 X10^6/uL (4.7-6.0) L 01/31/17 20: Hgb 11.2 g/dL (13.5-18.0) L 01/31/17 20: Hct 34.2 % (42.0-54.0) L 01/31/17 20: MCV 81.6 fL (80.0-100.0) 01/31/17 20: MCH 26.8 pg (27.0-34.0) L 01/31/17 20: MCHC 32.8 g/dL (33.0-35.0) L 01/31/17 20: RDW 14.6 % (11.6-16.5) 01/31/17 20: Plt Count 159 X10^3/uL (150.0-450.0) 01/31/17 20: MPV 7.9 fL (7.4-11.0) 01/31/17 20: Neut % 82.4 % (42.0-75.0) H 01/31/17 20: Lymph % 10.3 % (21.0-51.0) L 01/31/17 20: [place] % 7.2 % (0.0-13.0) 01/31/17 20: Eos % 0.0 % (0.9-2.9) L 01/31/17 20:31 Baso % 0.1 % (0.2-1.0) L 01/31/17 20:31 Neut # 4.6 x10^3/uL (2.2-4.8) 01/31/17 20:31 Lymph # 0.6 X10^3/uL (1.3-2.9) L 01/31/17 20:31 [place] # 0.4 x10^3/uL (0.3-0.8) 01/31/17 20:31 Eos # 0.0 x10^3/uL (0.0-0.2) 01/31/17 20:31 Baso # 0.0 X10^3/uL (0.0-0.1) 01/31/17 20:31 Absolute Nucleated RBC 0.0 /100WBC 01/31/17 20:31 Sodium 138 mmol/L (136-145) 01/31/17 20:31 Corrected Sodium 142 mmol/L (136-145) 01/31/17 20:31 Potassium 3.7 mmol/L (3.5-5.1) 01/31/17 20:31 Chloride 103 mmol/L (98-107) 01/31/17 20:31 Carbon Dioxide 24.2 mmol/L (21-32) 01/31/17 20:31 BUN 17 mg/dL (7-18) 01/31/17 20:31 Creatinine 1.61 mg/dL (0.70-1.30) H 01/31/17 20:31 Est GFR (MDRD) Af Amer 56 (>60) L 01/31/17 20:31 Est GFR (MDRD) Non-Af 47 (>60) L 01/31/17 20:31 Glucose 246 mg/dL (65-99) H 01/31/17 20:31 Calcium 8.3 mg/dL (8.5-10.1) L 01/31/17 20:31 Corrected Calcium 9.2 mg/dL (8.5-10.1) 01/31/17 20:31 Total Bilirubin 0.30 mg/dL (0.2-1.0) 01/31/17 20:31 AST 25 Units/L (15-37) 01/31/17 20:31 ALT 12 Units/L (12-78) 01/31/17 20:31 Alkaline Phosphatase 53 Units/L (46-116) 01/31/17 20:31 Total Protein 7.2 g/dL (6.4-8.2) 01/31/17 20:31 Albumin 2.9 g/dL (3.4-5.0) L 01/31/17 20:31 Globulin 4.3 g/dL (2.5-4.5) 01/31/17 20:31 Albumin/Globulin Ratio 0.7 Ratio (1.1-2.1) L 01/31/17 20:31 Amylase 43 Units/L (25-115) 01/31/17 20:31 Lipase 98 Units/L (73-393) 01/31/17 20:31 Stool for White Cells No wbc's seen (None) 01/31/17 21:05 Stl C. diff Tox B Gene Negative (NEGATIVE) 01/31/17 21:05 Stl C. diff [id number] Negative (NEGATIVE) 01/31/17 21:05 - XRAY XRAY Interpreted by: Self XRAY Findings: AAS: normal - Diagnosis Discharge Problem: Diarrhea Qualifiers: Diarrhea type: unspecified type Qualified Code(s): R19.7 - Diarrhea, unspecified - Discharge Plan Condition: Stable Prescriptions: Bismuth Subsalicylate [Kaopectate] 262 mg PO TID #9 tablet - Follow ups/Referrals Follow ups/Referrals: GALLITO ROBERTSON [Primary Care Provider] - 3 days - Instructions
[2017-01-31 20:38] LABS: BASOPHILS % (AUTO) 0.1 % (0.2-1.0); HEMATOCRIT 34.2 % (42.0-54.0); HEMOGLOBIN 11.2 g/dL (13.5-18.0); LYMPHOCYTES # (AUTO) 0.6 X10^3/uL (1.3-2.9); LYMPHOCYTES % (AUTO) 10.3 % (21.0-51.0); MEAN CORPUSCULAR HEMOGLOBIN 26.8 pg (27.0-34.0); MEAN CORPUSCULAR HGB CONC 32.8 g/dL (33.0-35.0); MEAN CORPUSCULAR VOLUME 81.6 fL (80.0-100.0); MEAN PLATELET VOLUME 7.9 fL (7.4-11.0); MONOCYTES # (AUTO) 0.4 x10^3/uL (0.3-0.8); MONOCYTES % (AUTO) 7.2 % (0.0-13.0); NEUTROPHILS # (AUTO) 4.6 x10^3/uL (2.2-4.8); NEUTROPHILS % (AUTO) 82.4 % (42.0-75.0); PLATELET COUNT 159 X10^3/uL (150.0-450.0); RED CELL DISTRIBUTION WIDTH 14.6 % (11.6-16.5); WHITE BLOOD COUNT 5.6 X10^3/uL (3.6-10.0)
[2017-01-31 20:48] LABS: ALBUMIN 2.9 g/dL (3.4-5.0); CALCIUM 8.3 mg/dL (8.5-10.1); CARBON DIOXIDE 24.2 mmol/L (21-32); COR CA(FOR HYPOALB) 9.2 mg/dL (8.5-10.1); CREATININE 1.61 mg/dL (0.70-1.30); TOTAL PROTEIN 7.2 g/dL (6.4-8.2)
--- NOTE | 2017-01-31 22:51 | RAD ---
HISTORY: Fever, diarrhea, mid abdominal pain Study: Acute abdominal series Comparison: Chest CT 11/08/2016 Findings: There is elevation of the right hemidiaphragm with suggestion of small right pleural effusion. No ai rspace disease or pneumothorax identified. The cardiac and mediastinal contours are within normal li mits. Flat plate and upright evaluation of the abdomen demonstrates a normal bowel gas pattern. No gross f ree intraperitoneal air. No pathological soft tissue mass or calcification can be observed. There a re degenerative changes of the lumbosacral spine. IMPRESSION: 1. Small right-sided pleural effusion. 2. No evidence of acute abdominal pathology. Reported By:
== END 2017-01-31 22:31 | disposition home or self-care (01) ==
LOC: ER 19:34
DX: R19.7 Diarrhea, unspecified (principal); R10.84 Generalized abdominal pain; J90 Pleural effusion, not elsewhere classified
CPT/HCPCS: 36415; 74022; 80053; 82150; 83690; 85025; 87205; 87338; 87493; 96365; 99283; A4216; A4222